=== PATIENT | female | born 1945 | race Caucasian/White ===

== ENCOUNTER 2019-08-31 10:02 | Emergency (ER) | payer OTHER ==
[2019-08-31 10:12] VITALS: BP 180/82; PULSE 83; TEMP 98.1; BMI 32.5
--- NOTE | 2019-08-31 10:23 | PDOC ---
History of Present Illness - General Chief Complaint: Pain, Acute Stated Complaint: VAG BLEEDING - History of Present Illness Initial Comments: The pt is a 74F w/ a history of HTN, recurrent sinus infections, and a history of uterine cancer s/p LYNDON and radiation therapy 25 years ago who presents for evaluation of 6 days of urinary urgency, hematuria, and vaginal spotting. She also reports intermittent, mild, LLQ aching that is non-radiating, and not exacerbated or alleviated by anything she can identify. She denies fevers/chills, chest pain, trouble breathing, N/V/C/D, or blood in her stool. 08/31/19 10:36 Past History - Past Medical History Allergies/Adverse Reactions: Allergies Allergy/AdvReac Type Severity Reaction Status Date / Time NKDA Allergy Uncoded 08/31/19 10:04 Home Medications: Ambulatory Orders Sertraline HCl [Zoloft -] 1 tab PO DAILY 03/11/14 Ascorbate Calcium/Bioflav [Alina-C 500 mg Tablet] 1 tab PO DAILY 03/14/14 Amlodipine Besylate [Norvasc -] 5 mg PO DAILY 08/31/19 Cetirizine HCl [Zyrtec -] 10 mg PO DAILY PRN 08/31/19 Ergocalciferol (Vitamin D2) [Vitamin D2] 50,000 unit PO WEEKLY 08/31/19 Esomeprazole Magnesium [Nexium 24Hr] 20 mg PO DAILY 08/31/19 Losartan Potassium [Cozaar -] 50 mg PO DAILY 08/31/19 Simvastatin [Zocor] 10 mg PO HS 08/31/19 Anemia: Yes (PERNICIOUS; THROMBOCYTOPENIC DX) Asthma: No Cancer: Yes (UTERINE CANCER) Cardiac Disorders: No CVA: No COPD: No CHF: No Dementia: No Diabetes: No GI Disorders: Yes (HEMORROIDS; GERD;GASTRITIS;IBS; ANGIODYSPLASIA OF INTS; POLYPS) Disorders: No HTN: Yes Hypercholesterolemia: Yes Liver Disease: No Seizures: No Thyroid Disease: No - Surgical History Abdominal Surgery: No Appendectomy: No Cardiac Surgery: No Cholecystectomy: No Lung Surgery: No Neurologic Surgery: No Orthopedic Surgery: Yes (CARPAL TUNNEL) - Psycho Social/Smoking Cessation Hx Smoking History: Never smoked Have you smoked in the past 12 months: No Hx Alcohol Use: No Drug/Substance Use Hx: No Substance Use Type: None Hx Substance Use Treatment: No Review of Systems - Review of Systems Able to Perform ROS?: Yes Comments:: GENERAL/CONSTITUTIONAL: No fever or chills. No weakness HEAD, EYES, EARS, NOSE AND THROAT: No change in vision. No change in hearing. No sore throat CARDIOVASCULAR: No chest pain or shortness of breath RESPIRATORY: Denies cough, hemoptysis GASTROINTESTINAL: No nausea, vomiting, diarrhea or constipation GENITOURINARY: +urgency/hematuria MUSCULOSKELETAL: No joint or muscle swelling or pain. No neck or back pain SKIN: No rash NEUROLOGIC: No headache, vertigo, loss of consciousness, or change in strength/ sensation ENDOCRINE: No increased thirst. No abnormal weight change HEMATOLOGIC/LYMPHATIC: No anemia, easy bleeding, or history of blood clots ALLERGIC/IMMUNOLOGIC: No hives or skin allergy 08/31/19 10:22 Is the patient limited Yakut proficient: No *Physical Exam - Vital Signs Last Vital Signs Temp Pulse Resp BP Pulse Ox 98.1 F 83 20 180/82 H 97 08/31/19 10:03 08/31/19 10:03 08/31/19 10:03 08/31/19 10:03 08/31/19 10:03 - Physical Exam Comments: GENERAL: Awake, alert, and oriented to person/place/time, in no acute distress HEAD: No signs of trauma, normocephalic, atraumatic EYES: PERRLA, EOMI, sclera anicteric, conjunctiva clear ENT: Hearing grossly normal, nares patent, oropharynx clear without exudates. Moist mucosa LUNGS: No distress, speaks in full sentences, clear to auscultation bilaterally HEART: Regular rate and rhythm, normal S1 and S2, no murmurs appreciated, peripheral pulses normal and equal bilaterally ABDOMEN: Soft, protuberant, mild LLQ TTP w/o rebound or guarding, no hernia palpated, normoactive bowel sounds PELVIC: whitish vaginal discharge, minimal blood observed urethral meatus EXTREMITIES: Normal inspection, Normal range of motion, no edema. No clubbing or cyanosis NEUROLOGICAL: Cranial nerves II through XII grossly intact. Normal speech, normal gait, no focal sensorimotor deficits SKIN: Warm, Dry 08/31/19 10:22 ED Treatment Course - LABORATORY CBC & Chemistry Diagram: 08/31/19 11:38 08/31/19 11:38 - RADIOLOGY Radiograph Interpretation: CT scan of the abdomen and pelvis following oral and intravenous contrast. Comparison: Prior CT scan dated 12/19/2011 IMPRESSION: Tiny hiatus hernia. Questionable partial visualization of a normal-appearing appendix. There is no evidence of small bowel obstruction. Tiny fat-containing umbilical hernia. Multiple gallstones without CT evidence of acute cholecystitis. Left renal cysts with an approximately 1 cm partially exophytic left mid posterior lesion that may represent a complex cyst versus a solid lesion, for which further evaluation is recommended. 08/31/19 15:39 Medical Decision Making - Medical Decision Making The pt is a 74F w/ a history of HTN, recurrent sinus infections, and a history of uterine cancer s/p LYNDON and radiation therapy 25 years ago who presents for evaluation of 6 days of urinary urgency, hematuria, and vaginal spotting. ED Course CMP, CBC, Coags, UA, UCx CT A&P w/ IV contrast to evaluate for mass lesion 08/31/19 11:03 Urine w/ gross blood, no bacteria, some LE, neg nitrites 08/31/19 12:10 No leukocytosis No anemia 08/31/19 12:29 Lytes wnl No YOLIS LFTs wnl UA w/ blood, 1+ LE, neg nitirites, no bacteria, and only 5 WBC; not likely UTI CT w/ evidence of 1cm left renal complex cyst vs solid lesion Case discussed with Dr. Harris and Dr. Nunn, plan for D/C w/ close Urology follow up Discharge instructions and return precautions given Patient in agreement and verbalized understanding Dispo: Home 08/31/19 15:51 Discharge - Discharge Information Problems reviewed: Yes Clinical Impression/Diagnosis: Urinary frequency Hematuria Qualifiers: Hematuria type: unspecified type Qualified Code(s): R31.9 - Hematuria, unspecified Condition: Stable Disposition: HOME - Admission No - Follow up/Referral Referrals: Silvio Harris [Primary Care Provider] - Jarrett Nunn MD [Staff Physician] - - Patient Discharge Instructions Patient Printed Discharge Instructions: DI for Hematuria Additional Instructions: You were seen in the Emergency Department for evaluation of blood in your urine. Your other labs were unremarkable. Your CT was notable to a right renal cyst and a smaller left renal mass. The left renal mass may be a complex cyst or cancer. You need to follow up with Urology within a week. The Urologist, Dr. Nunn, was notified and his office should contact you tomorrow. If they do not, contact them, the number is on your discharge paperwork. Return to the Emergency Department if you develop fevers, chest pain, trouble breathing, worsening pain, change in sensation, worsening symptoms, or any new/ concerning symptoms. - Post Discharge Activity
--- NOTE | 2019-08-31 11:06 | PDOC ---
Attending Attestation - Resident Resident Name: Salvador Bunch - ED Attending Attestation I have performed the following: I have examined & evaluated the patient, The case was reviewed & discussed with the resident, I agree w/resident's findings & plan, Exceptions are as noted - HPI HPI: 08/31/19 11:05 74F w/ a history of HTN, recurrent sinus infections, and a history of uterine cancer s/p LYNDON and radiation therapy 25 years ago presents to the emergency department with hematuria versus vaginal bleeding 08/31/19 16:14 - Physicial Exam PE: 08/31/19 16:15 Vitals: Triage Vital signs reviewed General Appearance: No acute distress, well nourished well developed, Neck: Supple; no Nucal rigidity Chest Wall: Nontender Cardiac: Regular rate and rhythym, no murmurs, no rubs, no gallops, Lungs: Clear to auscultation bilateral, good air movement bilaterally, Abdomen: Soft, non distended, normal bowel sounds, non tender to palpation Extremities: Full range of motion to all extremities, no cyanosis, clubbing, or edema Skin: Warm and dry, no rashes or lesions, no rash, no petechiae Neuro: Strength intact to all extremities, sensation intact to all extremities, gait normal Psych: Normal mood, normal affect - Medical Decision Making 08/31/19 16:16 Hematuria versus vaginal bleeding normal pelvic examination CT demonstrates possible renal cyst versus mass urology consulted. Findings discussed with patient and importance of follow-up discussed with patient.101 Hematuria noted in urine outpatient follow-up arranged for tomorrow Findings, the need for follow-up and strict return instructions discussed with patient.
[2019-08-31 11:40] LABS: HYALINE CASTS 2 /lpf (0-8); URINE APPEARANCE CLOUDY; URINE BACTERIA 0 /hpf (NEGATIVE); URINE BILIRUBIN NEGATIVE (NEGATIVE); URINE COLOR RED; URINE GLUCOSE (UA) NEGATIVE (NEGATIVE); URINE KETONE NEGATIVE (NEGATIVE); URINE LEUK ESTERASE 1+ (NEGATIVE); URINE NITRITE NEGATIVE (NEGATIVE); URINE PROTEIN 2+ (NEGATIVE); URINE UROBILINOGEN 0.2 mg/dL (0.2-1.0); URINE WBC 5 /hpf (0-5)
[2019-08-31 12:12] LABS: BASO % 0.5 % (0-2.0); EOS % 0.8 % (0-4.5); HEMOGLOBIN 12.3 GM/dL (10.7-15.3); LYMPH % 18.6 % (8-40); MCH 27.2 pg (25.7-33.7); MCHC 33.3 g/dl (32.0-36.0); MEAN CELL VOLUME 81.6 fl (80-96); MEAN PLT VOLUME 9.8 fl (7.5-11.1); MONO % 6.3 % (3.8-10.2); NEUT % 73.8 % (42.8-82.8); PLATELET COUNT 172 K/MM3 (134-434); RBC 4.54 M/mm3 (3.60-5.2); RDW 14.6 % (11.6-15.6); WHITE BLOOD COUNT 4.7 K/mm3 (4.0-10.0)
[2019-08-31 12:32] LABS: INR 0.99 (0.83-1.09); PROTHROMBIN TIME (PATIENT) 11.7 SEC (9.7-13.0)
[2019-08-31 12:46] LABS: URINE RBC 159.4 /hpf (0-4)
[2019-08-31 12:46] LABS: ALBUMIN 3.7 g/dl (3.4-5.0); BILIRUBIN,TOTAL 0.3 mg/dL (0.2-1); BLOOD UREA NITROGEN 11.8 mg/dL (7-18); CALCIUM 8.9 mg/dL (8.5-10.1); CREATININE 0.6 mg/dL (0.55-1.3); POTASSIUM 3.8 mmol/L (3.5-5.1); TOT PROT 6.6 g/dl (6.4-8.2)
[2019-08-31 12:47] LABS: YEAST NONE SEEN (NEGATIVE)
== END 2019-08-31 17:08 | disposition home or self-care (01) ==
LOC: SUPCPDRO 10:02 → JER 10:02
DX: R31.9 Hematuria, unspecified (principal); I10 Essential (primary) hypertension; R35.0 Frequency of micturition; E78.00 Pure hypercholesterolemia, unspecified; D69.6 Thrombocytopenia, unspecified; Z87.19 Personal history of other diseases of the digestive system; Z85.42 Personal history of malignant neoplasm of other parts of uterus; Z92.3 Personal history of irradiation; Z90.710 Acquired absence of both cervix and uterus
CPT/HCPCS: 36415; 74177-TC; 80053; 81003; 85025; 85610; 85730; 87086; 99284-25

== ENCOUNTER 2019-12-24 11:51 | Inpatient (IN) | payer OTHER ==
[2019-12-24] MEDS ORDERED: ACETAMINOPHEN 1000 MG/100 ML VIAL (NON FORMULARY) IVPB ONE (12:20)
[2019-12-24] MEDS ORDERED: MORPHINE SULFATE 2 MG/ML VIAL IVPUSH ONE (12:20)
[2019-12-24] MEDS ORDERED: DIPHTH,PERTUSS(ACELL),TET 0.5 ML DISP.SYRIN IM ONE ×2 (12:21→13:02)
[2019-12-24] MEDS ORDERED: MORPHINE SULFATE 2 MG/ML VIAL ONE (12:22)
[2019-12-24 12:36] LABS: BASO % 0.7 % (0-2.0); EOS % 0.6 % (0-4.5); HEMATOCRIT 36.8 % (32.4-45.2); HEMOGLOBIN 12.1 GM/dL (10.7-15.3); LYMPH % 16.9 % (8-40); MEAN CELL VOLUME 78.9 fl (80-96); MEAN PLT VOLUME 9.5 fl (7.5-11.1); MONO % 4.6 % (3.8-10.2); NEUT % 77.2 % (42.8-82.8); PLATELET COUNT 145 K/MM3 (134-434); RBC 4.67 M/mm3 (3.60-5.2); RDW 15.2 % (11.6-15.6); WHITE BLOOD COUNT 4.9 K/mm3 (4.0-10.0)
[2019-12-24 12:49] LABS: INR 1.01 (0.83-1.09); PROTHROMBIN TIME (PATIENT) 11.9 SEC (9.7-13.0)
[2019-12-24] MEDS ORDERED: HYDROmorphone HCL CARPU-JECT 2 MG/1 ML DISP.SYRIN IVPUSH ONE (12:59)
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
[2019-12-24] MEDS ORDERED: HYDROmorphone HCl 2 MG/ML VIAL ONE (13:02)
[2019-12-24 13:11] LABS: ALBUMIN 3.5 g/dl (3.4-5.0); BILIRUBIN,TOTAL 0.3 mg/dL (0.2-1); BLOOD UREA NITROGEN 14.6 mg/dL (7-18); CALCIUM 8.7 mg/dL (8.5-10.1); CREATININE 0.7 mg/dL (0.55-1.3); POTASSIUM 3.8 mmol/L (3.5-5.1); TOT PROT 6.7 g/dl (6.4-8.2)
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
[2019-12-24] MEDS ORDERED: KETAMINE HCL 500 MG/10 ML VIAL IVPB ONE ×2 (14:23→15:56)
[2019-12-24] MEDS ORDERED: KETAMINE HCL 500 MG/10 ML VIAL ONE (15:03)
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
[2019-12-24] MEDS ORDERED: SODIUM CHLORIDE 0.9% 500 ML INFUS.BAG IV ONE (15:57)
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
[2019-12-24 21:06] VITALS: BMI 30.2
[2019-12-24] MEDS: LIDOCAINE PATCH REMOVAL MC SCH (21:47)
[2019-12-24] MEDS: ATORVASTATIN CA 10 MG TABLET (FP) PO SCH (21:59)
[2019-12-24] MEDS: SODIUM CHLORIDE 1,000 ML IV SCH (22:01)
[2019-12-24] MEDS: LIDOCAINE 5% TOPICAL PATCH TP SCH (23:26)
[2019-12-25] MEDS: oxyCODONE HCL 5 MG TABLET PO PRN ×3 (06:54→15:54)
[2019-12-25 08:54] LABS: BASO % 0.1 % (0-2.0); HEMATOCRIT 32.1 % (32.4-45.2); HEMOGLOBIN 10.8 GM/dL (10.7-15.3); LYMPH % 11.4 % (8-40); MCH 26.2 pg (25.7-33.7); MCHC 33.7 g/dl (32.0-36.0); MEAN CELL VOLUME 77.8 fl (80-96); MEAN PLT VOLUME 9.9 fl (7.5-11.1); MONO % 6.9 % (3.8-10.2); NEUT % 81.6 % (42.8-82.8); PLATELET COUNT 168 K/MM3 (134-434); RBC 4.13 M/mm3 (3.60-5.2); WHITE BLOOD COUNT 6.2 K/mm3 (4.0-10.0)
[2019-12-25 08:55] LABS: INR 1.02 (0.83-1.09)
--- NOTE | 2019-12-25 09:31 | PN ---
Progress Note (short form) - Note Progress Note: ORTHOPEDIC SURGERY PROGRESS NOTE Department of Orthopedic Surgery SUBJECTIVE No acute events overnight. No complaints currently. Denies chest pain, shortness of breath, or calf pain. No nausea or vomiting. Tolerating oral intake. Pain control difficult overnight, but improving. PHYSICAL EXAMINATION General: Alert, oriented, cooperative and no distress. Left Upper Extremity: In Sling; Skin warm, dry, and intact; no lesions, rashes or ulcers noted. Muscle mass equal and symmetric to contralateral side. No atrophy noted. No masses or effusions noted. Tender to palpation over the left shoulder; LROM of the left shoulder secondary to pain; nontender throughout rest of extremity. Full passive and active ROM of the wrist, and elbow, free from pain. Joints stable with no pathologic laxity. M/R/U/MSK/AX motor intact; SILT distally; 2+ radial pulses; Cap refill brisk. Tone and reflexes normal. DVT Exam: No evidence of DVT seen on physical exam; No cords or calf tenderness ; No significant calf/ankle edema. Intake & Output 12/23/19 12/24/19 12/25/19 23:59 23:59 23:59 Intake Total 1760 420 Balance 1760 420 Intake: IV 1500 420 Normal Saline - 1,000 ml 420 @ 42 mls/hr IV ASDIR TUAN Rx#:[id number] normal saline 1500 IVPB 200 Oral 60 Other: Voiding Method Bedpan # Unmeasured Voids Void 4 2 Bowel Movement Yes # Bowel Movements 1 Weight 135 lb Height 4 ft 8 in Body Mass Index (BMI) 30.2 Weight Measurement Method Estimated by Patient Active Medications Generic Name Dose Route Start Last Admin Trade Name Freq PRN Reason Stop Dose Admin Acetaminophen 1,000 mg 12/24/19 12:20 Ofirmev Injection - IVPB 12/24/19 12:21 ONCE ONE Acetaminophen 650 mg 12/24/19 17:41 Tylenol - PO Q4H PRN PAIN LEVEL 4 - 6 Amlodipine Besylate 5 mg 12/25/19 10:00 Norvasc - PO DAILY [facility] Atorvastatin Calcium 10 mg 12/24/19 22:00 12/24/19 21:59 Lipitor - PO 10 mg HS TUAN Administration Sodium Chloride 1,000 mls @ 42 mls/hr 12/24/19 21:45 12/24/19 22:01 Normal Saline - IV 42 mls/hr ASDIR TUAN Administration Lidocaine 1 patch 12/24/19 18:30 12/24/19 23:26 Lidoderm Patch - TP 1 patch DAILY TUAN Administration Losartan Potassium 50 mg 12/25/19 10:00 Cozaar - PO DAILY TUAN Miscellaneous 1 each 12/24/19 22:00 12/24/19 21:47 Lidoderm Patch Removal MC Not Given DAILY@2200 [facility] Oxycodone HCl 10 mg 12/24/19 15:33 12/25/19 06:54 Roxicodone - PO 10 mg Q4H PRN Administration PAIN LEVEL 7 - 10 Vital Signs (last) Temp Pulse Resp BP Pulse Ox 98.1 F 81 18 149/76 97 12/25/19 05:38 12/25/19 05:38 12/25/19 05:38 12/25/19 05:38 12/24/19 20:14 Laboratory (coagulation) PT with INR 12.00 SEC (9.7-13.0) 12/25/19 07:14 Laboratory 12/25/19 07:[address] scan of the left shoulder demonstrates a left proximal humerus fracture. GH joint is maintained. ASSESSMENT AND PLAN Ms. Elias is a 74 year old female presenting status post mechanical injury with a left sided proximal humerus fracture. We have reviewed the imaging and clinical findings in detail, as well as their potential implications. After appropriate informed discussion, the patient was placed in a sling. Patient was instructed regarding: non weight bearing on fractured side. signs and symptoms of compartment syndrome and need to seek immediate care should new onset numbness, tingling, or significantly increasing pain occur. ice to left shoulder keeping the splint clean and dry. avoiding NSAID medications. - sling to left shoulder at all times. I discussed the risks and benefits of surgical intervention with the patient, and she states she would like to think about it for now. No further orthopedic intervention at this time. Patient can follow up in our office on December [address] Henriquez for further discussion on surgical versus non surgical treatment. All questions were answered. Thank you for involving our team in the care of this patient.
[2019-12-25 09:36] LABS: ALBUMIN 3.3 g/dl (3.4-5.0); BILIRUBIN,TOTAL 0.6 mg/dL (0.2-1); BLOOD UREA NITROGEN 11.6 mg/dL (7-18); CALCIUM 8.7 mg/dL (8.5-10.1); CREATININE 0.6 mg/dL (0.55-1.3); MAGNESIUM 2.3 mg/dL (1.8-2.4); POTASSIUM 3.6 mmol/L (3.5-5.1); TOT PROT 6.1 g/dl (6.4-8.2)
[2019-12-25] MEDS: amLODIPine BESYLATE 5 MG TABLET (FP) PO SCH (09:55)
[2019-12-25] MEDS: ACETAMINOPHEN 325 MG TABLET (FP) PO PRN ×2 (09:56→15:53)
[2019-12-25] MEDS: LOSARTAN POTASSIUM 50 MG TABLET (FP) PO SCH (09:56)
[2019-12-25] MEDS: LIDOCAINE 5% TOPICAL PATCH TP SCH (09:59)
[2019-12-25] MEDS ORDERED: SERTRALINE HCL 50 MG TABLET (FP) PO SCH (10:00)
--- NOTE | 2019-12-25 11:33 | PN ---
Progress Note (short form) - Note Progress Note: She is comfortable has no pain fever or chills. Seen by orthopedics yesterday. Had a sling in place. No nausea no vomiting she has no focal deficits Vital Signs Period Temp Pulse Resp BP Sys/High Pulse Ox Last 24 Hr 97.6 F-98.6 F 76-98 16-18 122-170/52-110 97-100 Head no headache no dizziness Ear nose throat no epistaxis Cardiovascular no chest pain Pulmonary no wheezing no coughing GI no abdominal pain Endocrine no history of diabetes hypothyroidism Neuro no history of stroke Dermatology no history of stroke Locomotor Pain in left arm Rest of review of systems are negative Patient is comfortable HEENT She has mild scratches on her left forehead Neck supple no JVD Lungs clear no wheezing Abdomen nontender no organomegaly bowel sounds normal Extremities Left arm in sling Neurologically he is alert awake oriented, nonfocal Skin no rash noted Cardiac exam normal heart sounds Repeat CAT scan of the head done yesterday showed no acute bleed or fracture no CT evidence of acute infarct report is in the chart CBC, BMP 12/25/19 07:14 12/25/19 07:14 Assessment and plan Contusion of the head there is no bleeding inside we will just observe her Fracture of the humerus seen by orthopedics and has a sling in place Hypertension stable continue Cozaar Hyperlipidemia stable continue Lipitor DVT prophylaxis she had MARY ANNE stockings. Visit type - Emergency Visit Emergency Visit: Yes ED Registration Date: 12/24/19 Care time: The patient presented to the Emergency Department on the above date and was hospitalized for further evaluation of their emergent condition. - New Patient This patient is new to me today: Yes Date on this admission: 12/25/19 - Critical Care Critical Care patient: No - Discharge Referral Referred to [facility] Med [facility] No
--- NOTE | 2019-12-25 13:26 | EKG ---
Test Reason : Blood Pressure : / mmHG Vent. Rate : 081 BPM Atrial Rate : 081 BPM P-R Int : 170 ms QRS Dur : 074 ms QT Int : 390 ms P-R-T Axes : 032 000 055 degrees QTc Int : 453 ms NORMAL SINUS RHYTHM Possible Right ventricular hypertrophy WHEN COMPARED WITH ECG OF 08-JUL-2019 10:43, CRITERIA FOR SEPTAL INFARCT ARE NO LONGER PRESENT Confirmed by REESE OVALLE MD ([id number]) on 12/25/2019 1:26:13 PM Referred By: CRISTOFER ESPINOZA Confirmed By:REESE OVALLE MD
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
[2019-12-25] MEDS: LIDOCAINE PATCH REMOVAL MC SCH (21:57)
[2019-12-25] MEDS: ATORVASTATIN CA 10 MG TABLET (FP) PO SCH (21:57)
[2019-12-26] MEDS: ACETAMINOPHEN 325 MG TABLET (FP) PO PRN ×3 (06:05→22:15)
[2019-12-26] MEDS: LIDOCAINE 5% TOPICAL PATCH TP SCH (10:00)
[2019-12-26] MEDS: LOSARTAN POTASSIUM 50 MG TABLET (FP) PO SCH (10:00)
[2019-12-26] MEDS: oxyCODONE HCL 5 MG TABLET PO PRN (10:01)
[2019-12-26] MEDS: amLODIPine BESYLATE 5 MG TABLET (FP) PO SCH (10:01)
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
--- NOTE | 2019-12-26 14:45 | PN ---
Progress Note (short form) - Note Progress Note: She is comfortable has no pain fever or chills. Seen by orthopedics Today. Had a sling in place. No nausea no vomiting she has no focal deficits Vital Signs Period Temp Pulse Resp BP Sys/High Pulse Ox Last 24 Hr 97.6 F-98.6 F 76-98 16-18 122-170/52-110 97-100 Head no headache no dizziness Ear nose throat no epistaxis Cardiovascular no chest pain Pulmonary no wheezing no coughing GI no abdominal pain Endocrine no history of diabetes hypothyroidism Neuro no history of stroke Dermatology no history of stroke Locomotor Pain in left arm Rest of review of systems are negative Patient is comfortable HEENT She has mild scratches on her left forehead Neck supple no JVD Lungs clear no wheezing Abdomen nontender no organomegaly bowel sounds normal Extremities Left arm in sling Neurologically he is alert awake oriented, nonfocal Skin no rash noted Cardiac exam normal heart sounds Repeat CAT scan of the head done yesterday showed no acute bleed or fracture no CT evidence of acute infarct report is in the chart CBC, BMP 12/25/19 07:14 12/25/19 07:14 Assessment and plan Contusion of the head there is no bleeding inside we will just observe her Fracture of the humerus seen by orthopedics and has a sling in place Hypertension stable continue Cozaar Hyperlipidemia stable continue Lipitor DVT prophylaxis Will start her on Lovenox because she has no cerebral bleed Patient possibly going for surgery of the left humerus Friday discussed with orthopedics I reviewed patient's data EKG she is medically optimized for surgery under local anesthesia or general anesthesia. Discussed with neurologist there is no contraindication for neurologically for anesthesia. Visit type - Emergency Visit Emergency Visit: Yes ED Registration Date: 12/24/19 Care time: The patient presented to the Emergency Department on the above date and was hospitalized for further evaluation of their emergent condition. - New Patient This patient is new to me today: No - Critical Care Critical Care patient: No - Discharge Referral Referred to [facility] Med P.C.: No
[2019-12-26] MEDS: ATORVASTATIN CA 10 MG TABLET (FP) PO SCH (21:00)
[2019-12-26] MEDS: LIDOCAINE PATCH REMOVAL MC SCH (22:34)
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
[2019-12-27] MEDS: ENOXAPARIN NA (PORCINE) 40 MG/0.4 ML DISP.SYRIN SQ SCH (09:49)
[2019-12-27] MEDS: LIDOCAINE 5% TOPICAL PATCH TP SCH (09:49)
[2019-12-27] MEDS: oxyCODONE HCL 5 MG TABLET PO PRN (09:50)
[2019-12-27] MEDS: LOSARTAN POTASSIUM 50 MG TABLET (FP) PO SCH (09:50)
[2019-12-27] MEDS: amLODIPine BESYLATE 5 MG TABLET (FP) PO SCH (09:50)
[2019-12-27 09:56] LABS: BASO % 1.3 % (0-2.0); HEMOGLOBIN 9.9 GM/dL (10.7-15.3); LYMPH % 12.1 % (8-40); MEAN CELL VOLUME 78.7 fl (80-96); MEAN PLT VOLUME 9.7 fl (7.5-11.1); MONO % 4.9 % (3.8-10.2); NEUT % 80.7 % (42.8-82.8); PLATELET COUNT 142 K/MM3 (134-434); RBC 3.81 M/mm3 (3.60-5.2); RDW 15.1 % (11.6-15.6); WHITE BLOOD COUNT 5.1 K/mm3 (4.0-10.0)
[2019-12-27 10:09] LABS: INR 1.08 (0.83-1.09); PROTHROMBIN TIME (PATIENT) 12.7 SEC (9.7-13.0)
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
[2019-12-27 10:32] LABS: ALBUMIN 2.9 g/dl (3.4-5.0); BILIRUBIN,TOTAL 0.5 mg/dL (0.2-1); CALCIUM 8.1 mg/dL (8.5-10.1); CREATININE 0.6 mg/dL (0.55-1.3); MAGNESIUM 1.8 mg/dL (1.8-2.4); POTASSIUM 3.6 mmol/L (3.5-5.1); TOT PROT 5.8 g/dl (6.4-8.2)
[2019-12-27] MEDS ORDERED: POTASSIUM CHLORIDE TABS 20 MEQ TABLET.ER (FP) PO ONE (12:52)
[2019-12-27] MEDS: ACETAMINOPHEN 325 MG TABLET (FP) PO PRN ×2 (15:14→23:32)
--- NOTE | 2019-12-27 17:44 | PN ---
Progress Note (short form) - Note Progress Note: ORTHOPEDIC SURGERY PROGRESS NOTE Department of Orthopedic Surgery SUBJECTIVE No events overnight. Denies numbness, tingling or other constitutional complaints. Denies chest pain, shortness of breath, or calf pain. No nausea or vomiting. Tolerating oral intake. Pain controlled. PHYSICAL EXAMINATION General: Alert, oriented, cooperative and no distress. Upper Extremity: Swelling and ecchymosis of the left shoulder and arm. Skin intact, no lesions, rashes or ulcers noted. Full passive and active ROM elbow, wrist and fingers, free from pain. M/R/U/MSK/AX motor intact; SILT distally; 2+ radial pulses; Cap refill brisk. Lower Extremity: No tenderness to palpation. Full passive and active ROM, free from pain. EHL/TA/GS motor intact; SILT distally; 2+ DP pulses; Cap refill brisk. DVT Exam: No evidence of DVT seen on physical exam; No cords or calf tenderness ; No significant calf/ankle edema. Active Problems Problem Status Category Onset Brain contusion Acute Medical Contusion Acute Medical DVT prophylaxis Acute Medical Humeral fracture Acute Medical Hyperlipidemia Acute Medical Hypertension Acute Medical Knee abrasion Acute Medical Pain, acute due to trauma Acute Medical Prophylactic measure Acute Medical Social History Smoking history Never smoked Hx Alcohol Use No Allergies Allergy/AdvReac Type Severity Reaction Status Date / Time No Known Drug Allergies Allergy Verified 12/24/19 12:27 NKDA Allergy Uncoded 12/24/19 12:05 Active Medications Generic Name Dose Route Start Last Admin Trade Name Freq PRN Reason Stop Dose Admin Acetaminophen 650 mg 12/24/19 17:41 12/27/19 15:14 Tylenol - PO 325 mg Q4H PRN Administration PAIN LEVEL 4 - 6 Amlodipine Besylate 5 mg 12/25/19 10:00 12/27/19 09:50 Norvasc - PO 5 mg DAILY TUAN Administration Artificial Tears 2 drop 12/27/19 22:00 Artificial Tears OU HS TUAN Atorvastatin Calcium 10 mg 12/24/19 22:00 12/26/19 21:00 Lipitor - PO 10 mg HS TUAN Administration Bacitracin 1 applic 12/27/19 22:00 Bacitracin - TP BID TUAN Enoxaparin Sodium 40 mg 12/27/19 10:00 12/27/19 09:49 Lovenox - SQ 40 mg DAILY TUAN Administration Sodium Chloride 1,000 mls @ 42 mls/hr 12/24/19 21:45 12/24/19 22:01 Normal Saline - IV 42 mls/hr ASDIR TUAN Administration Lidocaine 1 patch 12/24/19 18:30 12/27/19 09:49 Lidoderm Patch - TP 1 patch DAILY [facility]UAN Administration Losartan Potassium 50 mg 12/25/19 10:00 12/27/19 09:50 Cozaar - PO 50 mg DAILY TUAN Administration Miscellaneous 1 each 12/24/19 22:00 12/26/19 22:34 Lidoderm Patch Removal MC 1 each DAILY@2200 [facility]AN Administration Oxycodone HCl 10 mg 12/24/19 15:33 12/27/19 09:50 Roxicodone - PO 10 mg Q4H PRN Administration PAIN LEVEL 7 - 10 Vital Signs (last) Temp Pulse Resp BP Pulse Ox 97.4 F L 73 20 124/52 L 95 12/27/19 14:39 12/27/19 14:39 12/27/19 14:39 12/27/19 14:39 12/27/19 09:00 Intake and Output 12/25/19 12/26/19 12/27/19 23:59 23:59 23:59 Intake Total 1006 3146 3040 Balance 1006 3146 3040 Intake: IV 756 2172 2136 Normal Saline - 1,000 ml 756 672 636 @ 42 mls/hr IV ASDIR TUAN Rx#:[id number] normal saline 1500 1500 IVPB 504 504 Oral 250 470 400 Other: Voiding Method Bedpan Toilet Toilet # Unmeasured Voids Void 2 2 3 Bowel Movement No No No # Bowel Movements 1 Laboratory 12/27/19 09:45 12/27/19 09:00 PT with INR 12.70 SEC (9.7-13.0) 12/27/19 09:35 ASSESSMENT AND PLAN Leticia Elias is a 74 year old female with an acute left proximal humerus fracture with significant displacement, comminution, and shaft extension. - Plan for surgery tomorrow. Planned surgery is a reverse total shoulder arthroplasty/open reduction and internal fixation. - Appreciate Medicine/Neurology clearance noted. - NPO after midnight - IVF when NPO - Hold lovenox past might - Pain control - SCDs - Monitor H/H - Ice/Sling left shoulder - Elevate HOB, encourage oral intake - Nutrition optimization, decubitus precautions heel/sacrum
[2019-12-27] MEDS: LIDOCAINE PATCH REMOVAL MC SCH (21:20)
[2019-12-27] MEDS: ATORVASTATIN CA 10 MG TABLET (FP) PO SCH (21:20)
[2019-12-27] MEDS: BACITRACIN 15 GM TUBE TOPICAL OINTMENT TP SCH (21:20)
[2019-12-27] MEDS: SODIUM CHLORIDE 1,000 ML IV SCH ×2 (21:22→22:00)
[2019-12-27] MEDS ORDERED: ARTIFICIAL TEARS (POLYVINYL ALCOHOL) OPTH DROPS OU SCH (22:00)
[2019-12-28 08:18] LABS: BASO % 0.7 % (0-2.0); EOS % 2.4 % (0-4.5); HEMATOCRIT 27.1 % (32.4-45.2); HEMOGLOBIN 9.1 GM/dL (10.7-15.3); MCH 26.4 pg (25.7-33.7); MCHC 33.7 g/dl (32.0-36.0); MEAN CELL VOLUME 78.3 fl (80-96); MEAN PLT VOLUME 10.2 fl (7.5-11.1); MONO % 7.5 % (3.8-10.2); NEUT % 65.4 % (42.8-82.8); PLATELET COUNT 123 K/MM3 (134-434); RBC 3.46 M/mm3 (3.60-5.2); RDW 15.1 % (11.6-15.6)
[2019-12-28 08:23] LABS: ALBUMIN 2.7 g/dl (3.4-5.0); BILIRUBIN,TOTAL 0.7 mg/dL (0.2-1); BLOOD UREA NITROGEN 11.8 mg/dL (7-18); CALCIUM 8.2 mg/dL (8.5-10.1); CREATININE 0.5 mg/dL (0.55-1.3); MAGNESIUM 2.1 mg/dL (1.8-2.4); POTASSIUM 4.4 mmol/L (3.5-5.1); TOT PROT 5.4 g/dl (6.4-8.2)
[2019-12-28] MEDS ORDERED: ceFAZolin SODIUM 1 GM VIAL ONE (08:53)
[2019-12-28] MEDS ORDERED: TRANEXAMIC ACID 1000 MG/10 ML VIAL ONE ×2 (08:53→13:09)
[2019-12-28] MEDS ORDERED: VANCOMYCIN 1,000 MG VIAL (RESTRICTED TO ID ONLY) ONE (08:53)
[2019-12-28] MEDS: amLODIPine BESYLATE 5 MG TABLET (FP) PO SCH (08:59)
[2019-12-28] MEDS: LOSARTAN POTASSIUM 50 MG TABLET (FP) PO SCH (08:59)
[2019-12-28] MEDS: ENOXAPARIN NA (PORCINE) 40 MG/0.4 ML DISP.SYRIN SQ SCH (08:59)
[2019-12-28] MEDS: BACITRACIN 15 GM TUBE TOPICAL OINTMENT TP SCH ×2 (11:12→22:41)
[2019-12-28] MEDS: LIDOCAINE 5% TOPICAL PATCH TP SCH (11:13)
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
[2019-12-28] MEDS ORDERED: BUPIVACAINE LIPOSOME/PF (EXPAREL) 266 MG/20 ML VIAL ONE (11:55)
[2019-12-28] MEDS ORDERED: DESFLURANE GAS 240 ML BOTTLE IH ONE (13:04)
[2019-12-28] MEDS ORDERED: PROPOFOL 20 ML ONE (13:05)
[2019-12-28] MEDS ORDERED: DEXAMETHASONE SOD PHOSPHATE 4 MG/1 ML VIAL ONE (13:09)
[2019-12-28] MEDS ORDERED: MIDAZOLAM HCL 2 MG/2 ML SINGLE DOSE VIAL ONE ×2 (14:38)
[2019-12-28] MEDS ORDERED: ROCURONIUM BROMIDE 50 MG/5 ML SYRINGE ONE (14:49)
[2019-12-28] MEDS ORDERED: ceFAZolin SODIUM 1 GM VIAL IVPB ONE (15:10)
[2019-12-28] MEDS ORDERED: VANCOMYCIN 1,000 MG VIAL (RESTRICTED TO ID ONLY) IVPB ONE (15:12)
[2019-12-28] MEDS ORDERED: TRANEXAMIC ACID 1000 MG/10 ML VIAL IVPB ONE (15:29)
[2019-12-28] MEDS ORDERED: ONDANSETRON 4 MG/2 ML VIAL IVPUSH PRN ×2 (18:35→20:37)
[2019-12-28] MEDS ORDERED: LACTATED RINGERS SOLUTION 1,000 ML IV SCH ×2 (18:45→20:37)
--- NOTE | 2019-12-28 20:20 | OPR ---
Date of Procedure: 12/28/2019 Procedure: Left Shoulder- 1. Reverse total shoulder arthroplasty (61127) 2. Biceps tenodesis (97387) Preoperative Diagnoses: Proximal humerus fracture-4 part Postoperative Diagnoses: Proximal humerus fracture-4 part Surgeon: Juan Alberto Henriquez DO Assistants: Shabbir Wu DO Anesthesia: General endotracheal anesthesia, IV regional with interscalene nerve block Estimated Blood Loss: 150 mL Drains: Hemovac drain x 1 Total IV Fluids: Per anesthesia record Specimens: None Implants: FX Shoulder: 24mm baseplate, 36mm glenosphere, 10mm Humelock Reversed humeral stem, +6mm polyethylene; (2) 22mm interlocking screws, (2) 25mm locking screws, (1) 20mm locking screw. Complications: None Disposition: PACU Condition: Hemodynamically stable Indications: Leticia Elias presented to us with an acute 4-part proximal humerus fracure. We reviewed the natural history of this condition if left untreated and treatment options ranging from conservative measures to surgical options. We discussed the risks and benefits of each approach. I think she is an appropriate candidate for surgery due to her preinjury level of function, ongoing symptoms and dysfunction and the particular fracture pattern discussed above. We discussed options ranging from fracture fixation to hemiarthroplasty to reverse total shoulder replacement. After discussion of risks and benefits of each approach, we agreed reverse arthroplasty for fracture would be our procedure of choice. We felt a reverse TSA may be the best option for her in terms of maximizing her function with a single procedure. Fracture fixation has a high likelihood of failure to heal and avascular necrosis of the humeral head in this case. The patient is at risk for tuberosity failure with a hemiarthroplasty due to the nature of the fracture, and degree of tuberosity osteopenia and commminution. We discussed risks including but not limited to, bleeding, pain, infection, scarring, damage to neurovascular structures, blood clots, pulmonary embolus, need for additional surgery, incomplete relief of pain , and incomplete return of function. She expressed understanding and wished to proceed. She underwent preoperative medical evaluation clearance and optimization prior to surgery. Procedure Details: Leticia Elias was identified in the preoperative area. The left shoulder was marked as the operative site and consent was completed and confirmed. An interscalene block was performed by a member of the anesthesia team. She was later transferred to the operating room and placed in supine position the operating room. General anesthesia was induced without difficulty. She was repositioned into beach chair with all bony prominences appropriately padded. The neck was in neutral alignment. A surgical time-out was performed identifying the correct patient, procedure, and site. Antibiotics were given within 1 hour prior to surgical incision. The upper extremity was prepped and draped in standard sterile fashion. We began the procedure with an extended deltopectoral incision. Sharp dissection was carried out through the subcutaneous tissues down to the level of the fascia overlying the deltoid. Subcutaneous flaps were then developed and mobilized. The deltopectoral interval was identified and dissected lateralizing the cephalic vein. The cephalic vein was protected throughout the case and remained intact at its completion. The pectorlis major was noted to be torn from its insertion on the proximal humerus. The subdeltoid plane was developed and released, taking care to avoid the axillary nerve. The biceps tendon was identified and elevated on the bicipital groove and dissected distally. The surgical field was altered due to the traumatic nature of the injury with increased scarring, adhesions, and lost of normal anatomic planes. , The biceps tendon was tagged for later tenodesed into the upper border of the pectoralis major tendon remnant using #2 Fiberwire suture, [id number] stitch. The extra length of the tendon was then resected. After developing the subdeltoid plane, retractors were placed. The fracture fragments had become significantly impacted and crushed together; the humeral head was completely collapsed and pushed into the humeral shaft. The greater tuberosity was displaced posteriorly and it had an intact shell of the underlying metaphyseal bone but with comminution. A metphyseal spike of bone located lateral to the biciptal groove was noted to have some remnants of the pectorlis major tendon. Similarly, the lesser tuberosity was attached to the subscapularis tendon, which was of good quality. Again, metaphyseal bone had been crushed, but the shell of bone remained in the different fragments with significant comminution. We identified the humeral head. We released the rotator cuff interval as we followed the biceps tendon into the joint. We then used an osteotome to define the fracture planes of the greater tuberosity, lesser tuberosity, and humeral head. The humeral head was resected and removed out of the joint and was used for bone graft. A ronguer was used to get several pieces of bone graft for later use around the humeral prosthesis. We then turned our attention to the glenoid. A Fukuda retractor was placed posteriorly, displacing the humeral shaft and greater tuberosity posterior to the glenoid face. We identified the subscapularis and resected the anterior capsular tissue, and a thin retractor was placed anteriorly. We identified the axillary nerve and placed a hohmann retractor over it to protect it. We completed a global release of the subscapularis and placed a retractor over the anterior scapular neck. The labrum was circumferentially excised and the triceps origin was slightly recessed. This gave us excellent exposure to the glenoid, which was small. There were cartilage defects and fibrillation of the cartilage throughout glenoid face. We used the guidewire and base plate guide and drilled down the center of the glenoid with the appropriate drills. We then used a reamer so as to prepare the inferior aspect of the glenoid for the base plate. We then opened up the central hole down the middle of the glenoid to the appropriate depth. We then used a pie reamer to remove peripheral bone of the glenoid face. The base plate was then selected and placed in the proper orientation and screws were drilled both superiorly and inferiorly as well as anteriorly. The posterior screw hole was left empty. We measured the depth of each screw position and ultimately selected the superior, posterior, inferior positions to place our final locking screws. This gave us excellent fixation of the base plate into the glenoid. We thoroughly irrigated this area, and we selected the 36-mm 10-degree tilted glenosphere and this was placed without difficulty. We then turned our attention to the humeral canal. We dislocated it anteriorly. We prepared it with the T-handle broaches. Size 10 reamer had excellent progression down the canal. We therefore selected a size 10 real humeral stem. We irrigated this space and then we went to the broaches and we were able to fit this 10 mm down with appropriate retroversion of about 15-20 degrees. The height of the prosthesis was measured carefully off the humeral shaft cortex. We marked this for the real component. We selected the real component. Drill holes were placed into the humeral shaft both laterally in the shaft cortex as well as around bicipital groove anteriorly for repair of the greater and lesser tuberosities. (2) #5 FiberWire sutures, were passed through these holes for later use at fixation in the greater tuberosity and lesser tuberosity fragment. We reduced the metaphyseal spike of bone anatomically and secured it with a Nice knot using a #5 Ethibond suture circumferential around the proximal humerus. Once we were satisfied with the orientation in terms of retroversion and height, (2) #2 FiberWire and (2) #5 Ethibond sutures were placed around the humeral stem and the stem was press fit into the canal. Two interlocking screws were used to stabilize the stem rotationally. We trialed a humeral insert and found the +6 mm polyethylene insert to be of good fit without excess shuck and good range of motion. External rotation was 50 degrees, 90 degrees with the arm abducted, good forward elevation and abduction. After dislocating the humeral stem, we thoroughly irrigated all the components and selected the real polyethylene humeral insert. This was placed and the shoulder was reduced without difficulty. We again trialed motion, which was excellent. The humerus was reduced onto the glenosphere without difficulty, and we did use a 10-degree tilted glenosphere of 36 mm. After we were satisfied with positioning of the component, we turned our attention to greater tuberosity reconstruction. A portion of the supraspinatus tendon was resected, so it would not impinge on reverse construct. The greater tuberosity was brought down to the appropriate height meeting the top of the prosthesis. We tied this down to our humeral shaft via our #2 FiberWire sutures and this recreated nicely the greater tuberosity back onto the shaft as well as onto the proximal prosthesis. We bone grafted underneath this around the prosthesis and greater tuberosity shell. The prior sutures that were passed through the greater and lesser tuberosity and posterior cuff were passed around the prosthesis. The sutures were then tied down, achieving essentially cerclage fixation of the posterosuperior rotator cuff around the stem through the lesser tuberosity and subscapularis. These were tied on the anterolateral aspect of the proximal humerus, achieving excellent cerclage fixation around the prior shaft to tuberosity sutures. We had excellent fixation of the stem and tuberosities. We again trialed motion and we were satisfied with the result as there was excellent stability as well. The extra length of sutures were removed with scissors. We thoroughly irrigated the wound. We placed a hemovac drain though a separate stab incision anterolaterally. We closed a portion of the deltopectoral interval with #0 vicryl suture. A portion was unable to be reapproximated due to the poor quality of the pectoralis tissue. The remainder of the wound was closed with buried 0 and 2-0 Vicryl stitches followed by 3-0 subcuticular Monocryl stitch and Dermabond. Shoulder was sterilely dressed, placed in a shoulder immobilizer with an Ice unit over it trying to protect the skin. The patient was awoken from anesthesia and transferred to the PACU in stable condition. Description of increased surgical complexity: The components of added complexity in this case relate to the use of a reverse prosthesis in the setting of proximal humerus fracture. The extent of dissection and exposure required for reverse prosthesis as well as in the setting of a 4-part comminuted fracture with altered surgical field is beyond that of a simple total shoulder replacement. There is additional complexity related to the prosthesis itself, fitting the components together, with respect to its three- dimensional geometry and tensioning of the soft tissue. Post-operative Details: I spoke with the family regarding the operation after surgery. Postoperative rehabilitation: Reverse TSA protocol. She will remain in a sling for 4 weeks. No active range of motion exercises for 4-6 weeks; Early gentle PROM FF <90, ER<30. No strengthening for at least 4 months. Attestation for first aid teacher: Dr. Shabbir Wu acted as the first aid teacher. There was no qualified resident or physician phys assistant available to do so.
[2019-12-28 20:28] LABS: HEMATOCRIT 33.9 % (32.4-45.2); HEMOGLOBIN 11.1 GM/dL (10.7-15.3); MCH 26.7 pg (25.7-33.7); MCHC 32.8 g/dl (32.0-36.0); MEAN CELL VOLUME 81.5 fl (80-96); MEAN PLT VOLUME 10.5 fl (7.5-11.1); PLATELET COUNT 142 K/MM3 (134-434); RBC 4.15 M/mm3 (3.60-5.2); RDW 15.6 % (11.6-15.6); WHITE BLOOD COUNT 9.5 K/mm3 (4.0-10.0)
[2019-12-28] MEDS ORDERED: oxyCODONE HCL 5 MG TABLET PO PRN ×2 (20:37→20:44)
[2019-12-28] MEDS: ATORVASTATIN CA 10 MG TABLET (FP) PO SCH (22:39)
[2019-12-28] MEDS: CEFAZOLIN 2 GM/D5W 2 GM/50 ML ML IVPB SCH (22:39)
[2019-12-28] MEDS: ARTIFICIAL TEARS (POLYVINYL ALCOHOL) OPTH DROPS OU SCH (22:40)
[2019-12-29] MEDS ORDERED: VANCOMYCIN 1,000 MG in DEXTROSE 5%-WATER - 250 ML IVPB ONE (03:00)
[2019-12-29] MEDS ORDERED: VANCOMYCIN 1 GRAM (PRE-DOCKED) 1,000 MG/250 ML BAG IVPB ONE (03:00)
[2019-12-29] MEDS: CEFAZOLIN 2 GM/D5W 2 GM/50 ML ML IVPB SCH (06:38)
[2019-12-29 08:32] LABS: BASO % 0.4 % (0-2.0); EOS % 0.5 % (0-4.5); HEMATOCRIT 25.3 % (32.4-45.2); HEMOGLOBIN 8.6 GM/dL (10.7-15.3); MCH 26.8 pg (25.7-33.7); MCHC 33.9 g/dl (32.0-36.0); MEAN CELL VOLUME 79.1 fl (80-96); MEAN PLT VOLUME 10.3 fl (7.5-11.1); MONO % 9.1 % (3.8-10.2); PLATELET COUNT 139 K/MM3 (134-434); RDW 15.6 % (11.6-15.6); WHITE BLOOD COUNT 5.5 K/mm3 (4.0-10.0)
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
[2019-12-29 09:01] LABS: ALBUMIN 2.4 g/dl (3.4-5.0); BILIRUBIN,TOTAL 0.8 mg/dL (0.2-1); BLOOD UREA NITROGEN 13.4 mg/dL (7-18); CREATININE 0.6 mg/dL (0.55-1.3); MAGNESIUM 1.8 mg/dL (1.8-2.4); TOT PROT 4.7 g/dl (6.4-8.2)
[2019-12-29] MEDS: ACETAMINOPHEN 325 MG TABLET (FP) PO PRN ×2 (09:37→20:47)
[2019-12-29] MEDS: LOSARTAN POTASSIUM 50 MG TABLET (FP) PO SCH (09:39)
[2019-12-29] MEDS: amLODIPine BESYLATE 5 MG TABLET (FP) PO SCH (09:39)
[2019-12-29] MEDS: BACITRACIN 15 GM TUBE TOPICAL OINTMENT TP SCH ×2 (09:51→21:22)
[2019-12-29] MEDS: ENOXAPARIN NA (PORCINE) 40 MG/0.4 ML DISP.SYRIN SQ SCH (09:51)
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
--- NOTE | 2019-12-29 11:26 | PN ---
Progress Note (short form) - Note Progress Note: POD #1 s/p L reverse total shoulder arthroplasty under GETA with interscalene block. Patient doing well, has pain but refusing oral pain Rx, states pain is tolerable. Able to move fingers, LUE otherwise numb. Denies n/v. All questions answered, encouraged patient to take pain Rx.
[2019-12-29 13:54] LABS: BASO % 0.6 % (0-2.0); EOS % 0.8 % (0-4.5); HEMATOCRIT 25.6 % (32.4-45.2); HEMOGLOBIN 8.7 GM/dL (10.7-15.3); LYMPH % 9.8 % (8-40); MCH 26.9 pg (25.7-33.7); MCHC 33.8 g/dl (32.0-36.0); MEAN CELL VOLUME 79.7 fl (80-96); MEAN PLT VOLUME 10.1 fl (7.5-11.1); MONO % 7.6 % (3.8-10.2); NEUT % 81.2 % (42.8-82.8); PLATELET COUNT 168 K/MM3 (134-434); RBC 3.22 M/mm3 (3.60-5.2); RDW 15.5 % (11.6-15.6)
--- NOTE | 2019-12-29 18:15 | PN ---
Progress Note (short form) - Note Progress Note: ORTHOPEDIC SURGERY PROGRESS NOTE Department of Orthopedic Surgery SUBJECTIVE No acute events overnight. No complaints currently. Denies chest pain, shortness of breath, or calf pain. No nausea or vomiting. Tolerating oral intake. Pain control difficult overnight, but improving. PHYSICAL EXAMINATION General: Alert, oriented, cooperative and no distress. Upper Extremity: Dressing/shoulder immobilizer intact; Skin intact, no lesions, rashes or ulcers noted. Swelling of the hand and forearm. Muscle mass equal and symmetric to contralateral side. No atrophy noted. No tenderness to palpation. Gentle passive and active ROM, free from pain. Patient was seen earlier today and had decreased sensation globally, and was unable to move fingers or elbow. Now able to actively move fingers, wrist and elbow. Decreased sensation over lateral forearm and thumb; sensation otherwise intact to light touch. 2+ radial pulses; Cap refill brisk. DVT Exam: No evidence of DVT seen on physical exam; No cords or calf tenderness ; No significant calf/ankle edema. Intake & Output 12/27/19 12/28/19 12/29/19 23:59 23:59 23:59 Intake Total 3290 2454 1835 Output Total 150 200 Balance 3290 2304 1635 Intake: IV 2136 2454 975 Lactated Ringers Solution 975 1,000 ml @ 75 mls/hr IV ASDIR TUAN Rx#:[id number] Normal Saline - 1,000 ml 636 504 @ 42 mls/hr IV ASDIR TUAN Rx#:[id number] normal saline 1500 IVPB 504 300 Oral 650 Oral Supplement 560 Output: Urine 0 200 Void 200 Estimated Blood Loss 150 Other: Voiding Method Toilet Bedpan Toilet # Unmeasured Voids Void 3 Bowel Movement No No # Bowel Movements 1 Active Medications Generic Name Dose Route Start Last Admin Trade Name Freq PRN Reason Stop Dose Admin Acetaminophen 650 mg 12/28/19 20:37 12/29/19 09:37 Tylenol - PO 650 mg Q4H PRN Administration PAIN LEVEL 4 - 6 Amlodipine Besylate 5 mg 12/29/19 10:00 12/29/19 09:39 Norvasc - PO 5 mg DAILY TUAN Administration Artificial Tears 2 drop 12/28/19 22:00 12/28/19 22:40 Artificial Tears OU 2 drop HS TUAN Administration Atorvastatin Calcium 10 mg 12/28/19 22:00 12/28/19 22:39 Lipitor - PO 10 mg HS TUAN Administration Bacitracin 1 applic 12/28/19 22:00 12/29/19 09:51 Bacitracin - TP 1 applic BID TUAN Administration Enoxaparin Sodium 40 mg 12/29/19 10:00 12/29/19 09:51 Lovenox - SQ 40 mg DAILY TUAN Administration Losartan Potassium 50 mg 12/29/19 10:00 12/29/19 09:39 Cozaar - PO 50 mg DAILY TUAN Administration Oxycodone HCl 10 mg 12/28/19 20:37 Roxicodone - PO Q4H PRN PAIN LEVEL 7 - 10 Oxycodone HCl 5 mg 12/28/19 20:44 Roxicodone - PO 12/31/19 20:44 Q4H PRN PAIN LEVEL 1-5 Vital Signs (last) Temp Pulse Resp BP Pulse Ox 98.1 F 61 18 83/52 L 100 12/29/19 15:00 12/29/19 15:00 12/29/19 15:00 12/29/19 15:00 12/29/19 09:00 Laboratory (coagulation) PT with INR 12.70 SEC (9.7-13.0) 12/27/19 09:35 Laboratory 12/29/19 13:45 12/29/19 07:48 IMAGING Radiographs of the left shoulder show implants in appropriate position with no sign of hardware failure. ASSESSMENT AND PLAN Leticia Elias is a 74 year old female status post left reverse total shoulder arthroplasty. POD#1. Doing well, but does have some hand and forearm swelling. - Encouraged patient to elevate the hand while in bed; the straps of the shoulder immobilizer were loosened. - Pain control: Transition to oral pain medications, minimize narcotic use - DVT prophylaxis - Ice/Elevation - Elevate HOB, encourage oral intake - Appreciate medical management (Nutrition optimization, decubitus precautions heel/sacrum) - PT/OT; MIKE PATEL.
[2019-12-29] MEDS: ARTIFICIAL TEARS (POLYVINYL ALCOHOL) OPTH DROPS OU SCH (21:21)
[2019-12-29] MEDS: ATORVASTATIN CA 10 MG TABLET (FP) PO SCH (21:22)
--- NOTE | 2019-12-30 08:03 | PN ---
Progress Note (short form) - Note Progress Note: ORTHOPEDIC SURGERY PROGRESS NOTE Department of Orthopedic Surgery SUBJECTIVE No acute events overnight. No complaints currently. Denies chest pain, shortness of breath, or calf pain. No nausea or vomiting. Tolerating oral intake. Pain controlled. Much more comfortable in new shoulder immobilizer. PHYSICAL EXAMINATION General: Alert, oriented, cooperative and no distress. Upper Extremity: Dressing/shoulder immobilizer intact; Skin intact, no lesions, rashes or ulcers noted. Hand swelling significantly improved. Muscle mass equal and symmetric to contralateral side. No atrophy noted. No tenderness to palpation. Gentle passive and active ROM, free from pain. Musc/Rad/Ulnar/Median motor intact. Appears to be firing deltoid. Sensation intact to light touch. 2+ radial pulses; Cap refill brisk. DVT Exam: No evidence of DVT seen on physical exam; No cords or calf tenderness; No significant calf/ankle edema. Intake & Output 12/28/19 12/29/19 12/30/19 23:59 23:59 23:59 Intake Total 2454 2075 Output Total 150 200 Balance 2304 1875 Intake: IV 2454 975 Lactated Ringers Solution 975 1,000 ml @ 75 mls/hr IV ASDIR TUAN Rx#:[id number] Normal Saline - 1,000 ml 504 @ 42 mls/hr IV ASDIR TUAN Rx#:[id number] IVPB 300 Oral 240 Oral Supplement 560 Output: Urine 0 200 Void 200 Estimated Blood Loss 150 Other: Voiding Method Bedpan Toilet # Unmeasured Voids Void 1 Bowel Movement No No Active Medications Generic Name Dose Route Start Last Admin Trade Name Freq PRN Reason Stop Dose Admin Acetaminophen 650 mg 12/28/19 20:37 12/29/19 20:47 Tylenol - PO 650 mg Q4H PRN Administration PAIN LEVEL 4 - 6 Amlodipine Besylate 5 mg 12/29/19 10:00 12/29/19 09:39 Norvasc - PO 5 mg DAILY TUAN Administration Artificial Tears 2 drop 12/28/19 22:00 12/29/19 21:21 Artificial Tears OU 2 drop HS TUAN Administration Atorvastatin Calcium 10 mg 12/28/19 22:00 12/29/19 21:22 Lipitor - PO 10 mg HS TUAN Administration Bacitracin 1 applic 12/28/19 22:00 12/29/19 21:22 Bacitracin - TP 1 applic BID TUAN Administration Enoxaparin Sodium 40 mg 12/29/19 10:00 12/29/19 09:51 Lovenox - SQ 40 mg DAILY TUAN Administration Losartan Potassium 50 mg 12/29/19 10:00 12/29/19 09:39 Cozaar - PO 50 mg DAILY TUAN Administration Oxycodone HCl 10 mg 12/28/19 20:37 Roxicodone - PO Q4H PRN PAIN LEVEL 7 - 10 Oxycodone HCl 5 mg 12/28/19 20:44 Roxicodone - PO 12/31/19 20:44 Q4H PRN PAIN LEVEL 1-5 Vital Signs (last) Temp Pulse Resp BP Pulse Ox 98.6 F 78 18 109/48 L 97 12/29/19 22:23 12/29/19 22:23 12/29/19 22:23 12/29/19 22:23 12/29/19 21:00 Laboratory (coagulation) PT with INR 12.70 SEC (9.7-13.0) 12/27/19 09:35 Laboratory 12/29/19 13:45 12/29/19 07:48 ASSESSMENT AND PLAN Leticia Elias is a 74 year old female status post left reverse total shoulder arthroplasty. POD#2. Doing well. Hemodynamically stable. - Monitor H/H; vitals - Shoulder immobilizer on at all times. Keep pillow or blanket behind the arm at all times. - Pain control: Transition to oral pain medications, minimize narcotic use - DVT prophylaxis - Ice/Elevation - Elevate HOB, encourage oral intake - Appreciate medical management (Nutrition optimization, decubitus precautions heel/sacrum) - PT/OT; NWB LUE. No AROM or PROM of the shoulder. -Dispo planning
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
[2019-12-30] MEDS: MULTIVITAMINS (DAILY MVI) TABLET (FP) PO SCH (10:58)
[2019-12-30] MEDS: amLODIPine BESYLATE 5 MG TABLET (FP) PO SCH (10:58)
[2019-12-30] MEDS: BACITRACIN 15 GM TUBE TOPICAL OINTMENT TP SCH ×2 (10:59→21:27)
[2019-12-30] MEDS: POLYETHYLENE GLYCOL 3350 119 GM BTL PO SCH (10:59)
[2019-12-30] MEDS: ENOXAPARIN NA (PORCINE) 40 MG/0.4 ML DISP.SYRIN SQ SCH (10:59)
[2019-12-30] MEDS: LOSARTAN POTASSIUM 50 MG TABLET (FP) PO SCH (10:59)
[2019-12-30 12:20] LABS: BASO % 0.3 % (0-2.0); EOS % 1.2 % (0-4.5); HEMATOCRIT 25.4 % (32.4-45.2); HEMOGLOBIN 8.5 GM/dL (10.7-15.3); LYMPH % 12.5 % (8-40); MCHC 33.3 g/dl (32.0-36.0); MEAN PLT VOLUME 10.5 fl (7.5-11.1); MONO % 8.3 % (3.8-10.2); NEUT % 77.7 % (42.8-82.8); PLATELET COUNT 152 K/MM3 (134-434); RBC 3.13 M/mm3 (3.60-5.2); RDW 15.9 % (11.6-15.6); WHITE BLOOD COUNT 5.6 K/mm3 (4.0-10.0)
[2019-12-30 12:58] LABS: ALBUMIN 2.4 g/dl (3.4-5.0); BILIRUBIN,TOTAL 0.6 mg/dL (0.2-1); BLOOD UREA NITROGEN 16.8 mg/dL (7-18); CALCIUM 8.4 mg/dL (8.5-10.1); CREATININE 0.5 mg/dL (0.55-1.3); MAGNESIUM 1.9 mg/dL (1.8-2.4); POTASSIUM 3.7 mmol/L (3.5-5.1); TOT PROT 5.1 g/dl (6.4-8.2)
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
[2019-12-30] MEDS: DOCUSATE SODIUM 100 MG CAPSULE (FP) PO SCH ×2 (15:00→21:27)
--- NOTE | 2019-12-30 16:14 | PATH ---
Surgical Pathology Report Patient Name: YAMINI MARTINI Med. Rec. #: [id number] /Age/Gender: 1945 (Age: 74) / F Account: [id number] Location: [address] [place] [address]/[facility] Taken: 12/28/2019 Received: 12/29/2019 Reported: 12/30/2019 Physicians: Juan Alberto Henriquez, DO Keron Warner, FEstefaniaNNorbert Specimen(s) Received HUMERAL HEAD Clinical History Shoulder fracture left Final Diagnosis HUMERAL HEAD, RESECTION: HUMERAL HEAD WITH FOCAL INTERTRABECULAR ORGANIZING HEMORRHAGE. Note: clinical history of fracture noted. Electronically Signed Seth Mar M.D. Gross Description Received in formalin labeled "humeral head," is a 4.0 x 3.5 x 1.4 cm portion of bone, consistent with a portion of humeral head. The margin of resection is yellow-brown and focally hemorrhagic. The articular surface is mcintosh-yellow and focally granular. The underlying trabecular bone is yellow, hard and focally hemorrhagic. No areas of eburnation are identified. A field marketing representative section is submitted in one cassette, following decalcification. /12/29/2019 [facility]
[2019-12-30] MEDS: FERROUS SO4 325 MG TABLET (FP) PO SCH (18:20)
[2019-12-30] MEDS: ARTIFICIAL TEARS (POLYVINYL ALCOHOL) OPTH DROPS OU SCH (21:27)
[2019-12-30] MEDS: ATORVASTATIN CA 10 MG TABLET (FP) PO SCH (21:28)
[2019-12-30] MEDS: ACETAMINOPHEN 325 MG TABLET (FP) PO PRN (23:09)
[2019-12-31] MEDS: DOCUSATE SODIUM 100 MG CAPSULE (FP) PO SCH ×2 (06:29→13:32)
[2019-12-31] MEDS: FERROUS SO4 325 MG TABLET (FP) PO SCH (08:59)
[2019-12-31] MEDS: amLODIPine BESYLATE 5 MG TABLET (FP) PO SCH (09:32)
[2019-12-31] MEDS: ENOXAPARIN NA (PORCINE) 40 MG/0.4 ML DISP.SYRIN SQ SCH (09:32)
[2019-12-31] MEDS: MULTIVITAMINS (DAILY MVI) TABLET (FP) PO SCH (09:32)
[2019-12-31] MEDS: LOSARTAN POTASSIUM 50 MG TABLET (FP) PO SCH (09:33)
[2019-12-31] MEDS: BACITRACIN 15 GM TUBE TOPICAL OINTMENT TP SCH (09:33)
[2019-12-31] MEDS: POLYETHYLENE GLYCOL 3350 119 GM BTL PO SCH (09:33)
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
[2019-12-31 10:41] VITALS: BP 110/48; TEMP 98
[2019-12-31 11:31] LABS: BASO % 0.9 % (0-2.0); EOS % 1.5 % (0-4.5); HEMATOCRIT 25.9 % (32.4-45.2); HEMOGLOBIN 8.9 GM/dL (10.7-15.3); LYMPH % 15.7 % (8-40); MCH 27.3 pg (25.7-33.7); MCHC 34.2 g/dl (32.0-36.0); MEAN CELL VOLUME 79.7 fl (80-96); MEAN PLT VOLUME 10.3 fl (7.5-11.1); MONO % 7.3 % (3.8-10.2); NEUT % 74.6 % (42.8-82.8); PLATELET COUNT 190 K/MM3 (134-434); RBC 3.25 M/mm3 (3.60-5.2); RDW 15.9 % (11.6-15.6); WHITE BLOOD COUNT 6.6 K/mm3 (4.0-10.0)
[2019-12-31 12:20] LABS: ALBUMIN 2.4 g/dl (3.4-5.0); BILIRUBIN,TOTAL 0.6 mg/dL (0.2-1); BLOOD UREA NITROGEN 16.7 mg/dL (7-18); CALCIUM 8.8 mg/dL (8.5-10.1); CREATININE 0.5 mg/dL (0.55-1.3); MAGNESIUM 2.1 mg/dL (1.8-2.4); POTASSIUM 4.1 mmol/L (3.5-5.1); TOT PROT 5.4 g/dl (6.4-8.2)
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
[2019-12-31 14:26] VITALS: PULSE 81
== END 2019-12-31 14:30 | DRG 483 ==
LOC: JER 11:51 → JERBED 14:37 → J6S 20:03
PROVIDERS: ADMIT Internal Medicine; ATTEND Nurse Practitioner Family
PROC: 0LS40ZZ Reposition Left Upper Arm Tendon, Open Approach (ICD-10-PCS; 2019-12-28)
PROC: 30233N1 Transfusion of Nonautologous Red Blood Cells into Peripheral Vein, Percutaneous Approach (ICD-10-PCS; 2019-12-28)
PROC: 0RRK00Z Replacement of Left Shoulder Joint with Reverse Ball and Socket Synthetic Substitute, Open Approach (ICD-10-PCS; principal; 2019-12-28 13:00)
DX: S42.202A Unspecified fracture of upper end of left humerus, initial encounter for closed fracture (principal); I10 Essential (primary) hypertension; E78.5 Hyperlipidemia, unspecified; S06.2X0A Diffuse traumatic brain injury without loss of consciousness, initial encounter; S80.212A Abrasion, left knee, initial encounter; T14.90XA Injury, unspecified, initial encounter; X58.XXXA Exposure to other specified factors, initial encounter; Y93.89 Activity, other specified; Y92.89 Other specified places as the place of occurrence of the external cause; Y99.9 Unspecified external cause status
CPT/HCPCS: 36415; 36430; 36511; 70450-TC; 70486-TC; 72125-TC; 73030-TC-LT-FY; 73200-TC-RT; 73560-TC-LT-FY; 73560-TC-RT-FY; 80048; 80053; 83735; 85025; 85027; 85610; 86850; 86900; 86901; 86922; 90715; 93005; 93010; 94760; 97116-GP; 97162-GP; 99285-25; J7030; P9038; P9058

== ENCOUNTER 2022-12-27 10:59 | Observation (INO) | payer OTHER ==
[2022-12-27 11:12] VITALS: BMI 35.9
[2022-12-27 17:02] LABS: BASO % 1.1 % (0-2.0); EOS % 2.3 % (0-4.5); HEMATOCRIT 35.1 % (32.4-45.2); HEMOGLOBIN 11.5 GM/dL (10.7-15.3); LYMPH % 17.8 % (8-40); MCH 24.9 pg (25.7-33.7); MCHC 32.9 g/dl (32.0-36.0); MEAN CELL VOLUME 75.7 fl (80-96); MEAN PLT VOLUME 8.8 fl (7.5-11.1); MONO % 6.2 % (3.8-10.2); NEUT % 72.6 % (42.8-82.8); PLATELET COUNT 238 10^3/uL (134-434); RBC 4.64 M/mm3 (3.60-5.2); RDW 15.2 % (11.6-15.6); WHITE BLOOD COUNT 6.1 K/mm3 (4.0-10.0)
[2022-12-27 17:05] LABS: EPI CELLS 22 /uL (0-25.1); HYALINE CASTS 2 /uL (0-3.1); URINE APPEARANCE CLEAR; URINE BACTERIA 39 /uL (0-1359); URINE BILIRUBIN NEGATIVE (NEGATIVE); URINE COLOR DK YELLOW; URINE GLUCOSE (UA) NEGATIVE (NEGATIVE); URINE KETONE NEGATIVE (NEGATIVE); URINE LEUK ESTERASE 1+ (NEGATIVE); URINE NITRITE NEGATIVE (NEGATIVE); URINE PROTEIN 1+ (NEGATIVE); URINE RBC 20 /uL (0-23.9); URINE WBC 21 /uL (0-25.8)
[2022-12-27 17:08] LABS: INR 1.08 (0.83-1.09); PROTHROMBIN TIME (PATIENT) 12.5 SEC (9.7-13.0)
[2022-12-27 17:11] LABS: ACTIVATED PTT 33.7 SECONDS (25.2-36.5)
[2022-12-27 17:27] LABS: CALCIUM 9.1 mg/dL (8.5-10.1)
[2022-12-27 17:28] LABS: ALBUMIN 3.3 g/dl (3.4-5.0); BLOOD UREA NITROGEN 14.5 mg/dL (7-18)
[2022-12-27 17:31] LABS: CREATININE 0.6 mg/dL (0.55-1.3)
[2022-12-27 17:32] LABS: BILIRUBIN,TOTAL 0.3 mg/dL (0.2-1)
[2022-12-28] MEDS: ACETAMINOPHEN 325 MG TABLET (FP) PO SCH ×5 (02:51→18:09)
[2022-12-28] MEDS ORDERED: NYSTATIN POWDER 100,000 UNITS/GM - 15 GM TOPICAL POWDER TP SCH (03:41)
[2022-12-28] MEDS ORDERED: hydrALAZINE HCL 20 MG/ML VIAL IVPUSH ONE (05:46)
[2022-12-28 09:04] LABS: HEMATOCRIT 33.9 % (32.4-45.2); HEMOGLOBIN 11.3 GM/dL (10.7-15.3); MCHC 33.2 g/dl (32.0-36.0); MEAN CELL VOLUME 75.4 fl (80-96); MEAN PLT VOLUME 8.8 fl (7.5-11.1); PLATELET COUNT 225 10^3/uL (134-434); RDW 15.1 % (11.6-15.6); WHITE BLOOD COUNT 4.7 K/mm3 (4.0-10.0)
[2022-12-28 09:27] LABS: ALBUMIN 3.1 g/dl (3.4-5.0); CALCIUM 8.8 mg/dL (8.5-10.1)
[2022-12-28 09:28] LABS: BLOOD UREA NITROGEN 14.3 mg/dL (7-18)
[2022-12-28 09:30] LABS: CREATININE 0.5 mg/dL (0.55-1.3)
[2022-12-28 09:31] LABS: PHOSPHOROUS 2.8 mg/dL (2.5-4.9)
[2022-12-28 09:32] LABS: BILIRUBIN,TOTAL 0.6 mg/dL (0.2-1); TOT PROT 6.6 g/dl (6.4-8.2)
[2022-12-28] MEDS ORDERED: FLU VACC QS2022-23(6MOS UP)/PF 60 MCG/0.5 ML SYRINGE IM ONE (10:00)
[2022-12-28] MEDS: ENOXAPARIN NA (PORCINE) 40 MG/0.4 ML DISP.SYRIN SQ SCH (10:28)
[2022-12-28] MEDS: NYSTATIN POWDER 100,000 UNITS/GM - 15 GM TOPICAL POWDER TP SCH ×2 (10:28→23:03)
[2022-12-28] MEDS: LOSARTAN POTASSIUM 50 MG TABLET PO SCH (10:29)
[2022-12-28] MEDS: SERTRALINE HCL 50 MG TABLET (FP) PO SCH (10:29)
[2022-12-28] MEDS: ATORVASTATIN CA 10 MG TABLET (FP) PO SCH (23:03)
[2022-12-29 08:45] LABS: BASO % 0.9 % (0-2.0); EOS % 3.2 % (0-4.5); HEMATOCRIT 35.1 % (32.4-45.2); HEMOGLOBIN 11.5 GM/dL (10.7-15.3); MCH 24.9 pg (25.7-33.7); MCHC 32.7 g/dl (32.0-36.0); MEAN CELL VOLUME 76.2 fl (80-96); MEAN PLT VOLUME 8.8 fl (7.5-11.1); MONO % 6.4 % (3.8-10.2); NEUT % 66.5 % (42.8-82.8); PLATELET COUNT 235 10^3/uL (134-434); RBC 4.61 M/mm3 (3.60-5.2); RDW 15.1 % (11.6-15.6); WHITE BLOOD COUNT 4.5 K/mm3 (4.0-10.0)
[2022-12-29] MEDS: ENOXAPARIN NA (PORCINE) 40 MG/0.4 ML DISP.SYRIN SQ SCH (10:59)
[2022-12-29] MEDS: SERTRALINE HCL 50 MG TABLET (FP) PO SCH (10:59)
[2022-12-29] MEDS: LOSARTAN POTASSIUM 50 MG TABLET PO SCH (10:59)
[2022-12-29] MEDS: amLODIPine BESYLATE 5 MG TABLET (FP) PO SCH (10:59)
[2022-12-29] MEDS: NYSTATIN POWDER 100,000 UNITS/GM - 15 GM TOPICAL POWDER TP SCH ×2 (11:00→21:26)
[2022-12-29 13:47] LABS: BILIRUBIN,TOTAL 0.4 mg/dL (0.2-1); BLOOD UREA NITROGEN 15.7 mg/dL (7-18); CALCIUM 8.9 mg/dL (8.5-10.1); CREATININE 0.6 mg/dL (0.55-1.3); TOT PROT 6.6 g/dl (6.4-8.2)
[2022-12-29] MEDS: ATORVASTATIN CA 10 MG TABLET (FP) PO SCH (21:26)
[2022-12-30] MEDS: NYSTATIN POWDER 100,000 UNITS/GM - 15 GM TOPICAL POWDER TP SCH ×2 (09:27→22:28)
[2022-12-30] MEDS: amLODIPine BESYLATE 5 MG TABLET (FP) PO SCH (09:27)
[2022-12-30] MEDS: ENOXAPARIN NA (PORCINE) 40 MG/0.4 ML DISP.SYRIN SQ SCH (09:27)
[2022-12-30] MEDS: SERTRALINE HCL 50 MG TABLET (FP) PO SCH (09:27)
[2022-12-30] MEDS: LOSARTAN POTASSIUM 50 MG TABLET PO SCH (09:27)
[2022-12-30 12:57] LABS: BASO % 0.9 % (0-2.0); EOS % 2.4 % (0-4.5); HEMATOCRIT 36.3 % (32.4-45.2); LYMPH % 19.3 % (8-40); MCH 25.3 pg (25.7-33.7); MCHC 33.1 g/dl (32.0-36.0); MEAN CELL VOLUME 76.5 fl (80-96); MEAN PLT VOLUME 9.1 fl (7.5-11.1); MONO % 6.8 % (3.8-10.2); NEUT % 70.6 % (42.8-82.8); PLATELET COUNT 267 10^3/uL (134-434); RBC 4.74 M/mm3 (3.60-5.2); RDW 14.8 % (11.6-15.6); WHITE BLOOD COUNT 5.4 K/mm3 (4.0-10.0)
[2022-12-30] MEDS ORDERED: MELATONIN 5 MG TABLETS PO PRN (13:03)
[2022-12-30 13:27] LABS: BLOOD UREA NITROGEN 21.2 mg/dL (7-18); CALCIUM 9.2 mg/dL (8.5-10.1); MAGNESIUM 2.2 mg/dL (1.8-2.4)
[2022-12-30 13:29] LABS: PHOSPHOROUS 3.2 mg/dL (2.5-4.9)
[2022-12-30 13:31] LABS: CREATININE 0.6 mg/dL (0.55-1.3)
[2022-12-30 13:32] LABS: BILIRUBIN,TOTAL 0.3 mg/dL (0.2-1); TOT PROT 6.5 g/dl (6.4-8.2)
[2022-12-30] MEDS: POLYETHYLENE GLYCOL (HEALTHYLAX) 3350 17 GM PACKET PO SCH (16:54)
[2022-12-30] MEDS ORDERED: ACETAMINOPHEN 500 MG TABLET (FP) PO PRN (18:16)
[2022-12-30] MEDS: SENNOSIDES 8.8 MG/5 ML SYRUP PO SCH (22:28)
[2022-12-30] MEDS: ATORVASTATIN CA 10 MG TABLET (FP) PO SCH (22:28)
[2022-12-31 08:23] LABS: BASO % 0.7 % (0-2.0); HEMATOCRIT 33.3 % (32.4-45.2); LYMPH % 22.6 % (8-40); MCH 25.1 pg (25.7-33.7); MCHC 33.1 g/dl (32.0-36.0); MEAN CELL VOLUME 75.7 fl (80-96); MEAN PLT VOLUME 9.1 fl (7.5-11.1); MONO % 6.9 % (3.8-10.2); NEUT % 67.8 % (42.8-82.8); PLATELET COUNT 222 10^3/uL (134-434); RBC 4.41 M/mm3 (3.60-5.2); WHITE BLOOD COUNT 5.4 K/mm3 (4.0-10.0)
[2022-12-31 09:04] LABS: CALCIUM 8.8 mg/dL (8.5-10.1)
[2022-12-31 09:05] LABS: ALBUMIN 2.9 g/dl (3.4-5.0); BLOOD UREA NITROGEN 21.3 mg/dL (7-18); MAGNESIUM 2.2 mg/dL (1.8-2.4)
[2022-12-31 09:09] LABS: CREATININE 0.6 mg/dL (0.55-1.3); PHOSPHOROUS 3.6 mg/dL (2.5-4.9)
[2022-12-31 09:11] LABS: BILIRUBIN,TOTAL 0.3 mg/dL (0.2-1); TOT PROT 6.1 g/dl (6.4-8.2)
[2022-12-31] MEDS: LOSARTAN POTASSIUM 50 MG TABLET PO SCH (10:34)
[2022-12-31] MEDS: POLYETHYLENE GLYCOL (HEALTHYLAX) 3350 17 GM PACKET PO SCH (10:34)
[2022-12-31] MEDS: SERTRALINE HCL 50 MG TABLET (FP) PO SCH (10:34)
[2022-12-31] MEDS: amLODIPine BESYLATE 5 MG TABLET (FP) PO SCH (10:34)
[2022-12-31] MEDS: ENOXAPARIN NA (PORCINE) 40 MG/0.4 ML DISP.SYRIN SQ SCH (10:34)
[2022-12-31] MEDS: NYSTATIN POWDER 100,000 UNITS/GM - 15 GM TOPICAL POWDER TP SCH ×2 (10:35→21:48)
[2022-12-31] MEDS: ATORVASTATIN CA 10 MG TABLET (FP) PO SCH (21:49)
[2022-12-31] MEDS: SENNOSIDES 8.8 MG/5 ML SYRUP PO SCH (21:50)
[2023-01-01 07:52] LABS: BASO % 0.8 % (0-2.0); EOS % 2.2 % (0-4.5); HEMATOCRIT 34.5 % (32.4-45.2); HEMOGLOBIN 11.3 GM/dL (10.7-15.3); LYMPH % 23.5 % (8-40); MCHC 32.9 g/dl (32.0-36.0); MEAN CELL VOLUME 76.1 fl (80-96); MEAN PLT VOLUME 9.2 fl (7.5-11.1); MONO % 7.2 % (3.8-10.2); NEUT % 66.3 % (42.8-82.8); PLATELET COUNT 215 10^3/uL (134-434); RBC 4.53 M/mm3 (3.60-5.2); RDW 15.2 % (11.6-15.6); WHITE BLOOD COUNT 4.9 K/mm3 (4.0-10.0)
[2023-01-01 08:18] LABS: CALCIUM 8.9 mg/dL (8.5-10.1)
[2023-01-01 08:19] LABS: BLOOD UREA NITROGEN 19.2 mg/dL (7-18); MAGNESIUM 2.3 mg/dL (1.8-2.4)
[2023-01-01 08:22] LABS: CREATININE 0.6 mg/dL (0.55-1.3)
[2023-01-01 08:25] LABS: BILIRUBIN,TOTAL 0.4 mg/dL (0.2-1); TOT PROT 6.4 g/dl (6.4-8.2)
[2023-01-01] MEDS ORDERED: TAMSULOSIN HCL 0.4 MG CAP PO SCH (08:30)
[2023-01-01] MEDS: SERTRALINE HCL 50 MG TABLET (FP) PO SCH (10:01)
[2023-01-01] MEDS: ENOXAPARIN NA (PORCINE) 40 MG/0.4 ML DISP.SYRIN SQ SCH (10:01)
[2023-01-01] MEDS: amLODIPine BESYLATE 10 MG TABLET (FP) PO SCH (10:01)
[2023-01-01] MEDS: POLYETHYLENE GLYCOL (HEALTHYLAX) 3350 17 GM PACKET PO SCH (10:01)
[2023-01-01] MEDS: LOSARTAN POTASSIUM 50 MG TABLET PO SCH (10:02)
[2023-01-01] MEDS: NYSTATIN POWDER 100,000 UNITS/GM - 15 GM TOPICAL POWDER TP SCH ×2 (10:02→22:10)
[2023-01-01] MEDS ORDERED: BISACODYL 10 MG SUPP.RECT PR ONE ×2 (10:44→14:15)
[2023-01-01] MEDS: TAMSULOSIN HCL 0.4 MG CAP PO SCH (13:44)
[2023-01-01] MEDS ORDERED: DOCUSATE NA 100 MG/10 ML UNIT-DOSE CUPS PO PRN (18:00)
[2023-01-01] MEDS: SENNOSIDES 8.8 MG/5 ML SYRUP PO SCH (22:10)
[2023-01-01] MEDS: ATORVASTATIN CA 10 MG TABLET (FP) PO SCH (22:10)
[2023-01-02] MEDS: POLYETHYLENE GLYCOL (HEALTHYLAX) 3350 17 GM PACKET PO SCH ×3 (09:37→21:14)
[2023-01-02] MEDS: SERTRALINE HCL 50 MG TABLET (FP) PO SCH (09:37)
[2023-01-02] MEDS: ENOXAPARIN NA (PORCINE) 40 MG/0.4 ML DISP.SYRIN SQ SCH (09:37)
[2023-01-02] MEDS: TAMSULOSIN HCL 0.4 MG CAP PO SCH (09:38)
[2023-01-02] MEDS: amLODIPine BESYLATE 10 MG TABLET (FP) PO SCH (09:44)
[2023-01-02] MEDS: LOSARTAN POTASSIUM 50 MG TABLET PO SCH (09:44)
[2023-01-02] MEDS: NYSTATIN POWDER 100,000 UNITS/GM - 15 GM TOPICAL POWDER TP SCH ×2 (09:45→21:15)
[2023-01-02] MEDS ORDERED: GLYCERIN 1 RECTAL SUPPOSITORY, ADULT RC ONE (11:24)
[2023-01-02] MEDS ORDERED: DOCUSATE NA 100 MG/10 ML UNIT-DOSE CUPS PO PRN (11:27)
[2023-01-02] MEDS: SENNOSIDES 8.8 MG/5 ML SYRUP PO SCH ×2 (13:43→21:15)
[2023-01-02] MEDS: ATORVASTATIN CA 10 MG TABLET (FP) PO SCH (21:15)
[2023-01-03] MEDS: TAMSULOSIN HCL 0.4 MG CAP PO SCH (07:54)
[2023-01-03 08:15] LABS: BASO % 0.8 % (0-2.0); EOS % 1.8 % (0-4.5); HEMATOCRIT 32.3 % (32.4-45.2); HEMOGLOBIN 10.8 GM/dL (10.7-15.3); LYMPH % 18.6 % (8-40); MCH 25.4 pg (25.7-33.7); MCHC 33.3 g/dl (32.0-36.0); MEAN CELL VOLUME 76.2 fl (80-96); MEAN PLT VOLUME 9.5 fl (7.5-11.1); MONO % 7.3 % (3.8-10.2); NEUT % 71.5 % (42.8-82.8); PLATELET COUNT 171 10^3/uL (134-434); RBC 4.24 M/mm3 (3.60-5.2); RDW 15.1 % (11.6-15.6); WHITE BLOOD COUNT 4.8 K/mm3 (4.0-10.0)
[2023-01-03 08:58] LABS: ALBUMIN 2.8 g/dl (3.4-5.0); BLOOD UREA NITROGEN 21.4 mg/dL (7-18); CALCIUM 8.4 mg/dL (8.5-10.1); MAGNESIUM 2.3 mg/dL (1.8-2.4)
[2023-01-03 09:01] LABS: CREATININE 0.5 mg/dL (0.55-1.3)
[2023-01-03 09:02] LABS: BILIRUBIN,TOTAL 0.5 mg/dL (0.2-1); PHOSPHOROUS 3.2 mg/dL (2.5-4.9)
[2023-01-03 09:03] LABS: TOT PROT 5.9 g/dl (6.4-8.2)
[2023-01-03] MEDS: NYSTATIN POWDER 100,000 UNITS/GM - 15 GM TOPICAL POWDER TP SCH (10:08)
[2023-01-03] MEDS: ENOXAPARIN NA (PORCINE) 40 MG/0.4 ML DISP.SYRIN SQ SCH (10:08)
[2023-01-03] MEDS: LOSARTAN POTASSIUM 50 MG TABLET PO SCH (10:08)
[2023-01-03] MEDS: amLODIPine BESYLATE 10 MG TABLET (FP) PO SCH (10:08)
[2023-01-03] MEDS: POLYETHYLENE GLYCOL (HEALTHYLAX) 3350 17 GM PACKET PO SCH (10:08)
[2023-01-03] MEDS: SERTRALINE HCL 50 MG TABLET (FP) PO SCH (10:09)
[2023-01-03] MEDS: SENNOSIDES 8.8 MG/5 ML SYRUP PO SCH (10:09)
[2023-01-03 13:08] VITALS: RESP 18
[2023-01-03 14:30] VITALS: BP 99/57; PULSE 81; TEMP 98.3
== END 2023-01-03 20:50 ==
LOC: JER 10:59 → INTOOBSV 18:16 → JERBED 18:16 → J7W 12-28 00:14
PROVIDERS: ADMIT Internal Medicine; ATTEND Internal Medicine
PROC: 3E023GC Introduction of Other Therapeutic Substance into Muscle, Percutaneous Approach (ICD-10-PCS; principal; 2022-12-27)
PROC: 3E033GC Introduction of Other Therapeutic Substance into Peripheral Vein, Percutaneous Approach (ICD-10-PCS; 2022-12-27)
DX: S93.401A Sprain of unspecified ligament of right ankle, initial encounter (principal); S32.10XA Unspecified fracture of sacrum, initial encounter for closed fracture; W18.39XA Other fall on same level, initial encounter; Y93.89 Activity, other specified; Y92.008 Other place in unspecified non-institutional (private) residence as the place of occurrence of the external cause; I10 Essential (primary) hypertension; E78.5 Hyperlipidemia, unspecified; K21.9 Gastro-esophageal reflux disease without esophagitis; H35.30 Unspecified macular degeneration; K55.20 Angiodysplasia of colon without hemorrhage; Z85.42 Personal history of malignant neoplasm of other parts of uterus; E66.8 Other obesity; Z68.35 Body mass index [BMI] 35.0-35.9, adult
CPT/HCPCS: 0241U-QW; 36415; 71045-TC-FY; 72170-TC-FY; 72192-TC; 73521-TC-FY; 73562-TC-RT-FY; 73610-TC-RT-FY; 73630-TC-RT-FY; 80053; 81003; 83735; 84100; 85025; 85027; 85610; 85730; 86850; 86900; 86901; 87086; 93005; 93010; 96372; 96374; 97116-GP; 97161-GP; 99285-25; C9803-CS; G0378; U0003; U0005

== ENCOUNTER 2023-01-27 08:32 | Emergency (ER) | payer OTHER ==
[2023-01-27 09:10] VITALS: RESP 18; BMI 31.4
[2023-01-27] MEDS ORDERED: valACYclovir HCL 1000 MG TABLET PO ONE (12:13)
[2023-01-27] MEDS ORDERED: valACYclovir HCL 500 MG TABLET (FP) ONE (12:35)
[2023-01-27 16:47] VITALS: BP 152/73; PULSE 80; TEMP 98.1
== END 2023-01-27 16:47 | disposition home or self-care (01) ==
LOC: JER 08:32
DX: S09.90XA Unspecified injury of head, initial encounter (principal); S93.401A Sprain of unspecified ligament of right ankle, initial encounter; W01.198A Fall on same level from slipping, tripping and stumbling with subsequent striking against other object, initial encounter
CPT/HCPCS: 70450-TC; 70486-TC; 72125-TC; 73610-TC-RT-FY; 73630-TC-RT-FY; 99285-25